=== PATIENT | male | born 1975 | race Caucasian/White ===

== ENCOUNTER 2018-03-18 12:54 | Emergency (ER) | payer OTHER ==
[~2018-03-18] VITALS: Ht 182.9 cm; Wt 90.7 kg
== END 2018-03-18 14:05 | disposition left against medical advice (07) ==
LOC: ER 12:54
DX: Z53.21 Procedure and treatment not carried out due to patient leaving prior to being seen by health care provider (principal)

== ENCOUNTER 2019-09-07 09:15 | Emergency (ER) | payer OTHER ==
[~2019-09-07] VITALS: Ht 182.9 cm; Wt 90.7 kg
[2019-09-07] MEDS ORDERED: BUDE6HFA INH (09:51)
[2019-09-07] MEDS ORDERED: ZESTORETIC 20-1 EAC1 PO (09:51)
[2019-09-07] MEDS ORDERED: ESCI20 PO (09:51)
[2019-09-07] MEDS ORDERED: HYDR1TAB94 PO (11:16)
[2019-09-07] MEDS ORDERED: CYCL10 PO (11:16)
[2019-09-07] MEDS ORDERED: IBUP800 PO (11:16)
== END 2019-09-07 11:33 | disposition home or self-care (01) ==
LOC: ER 09:15
DX: S22.31XA Fracture of one rib, right side, initial encounter for closed fracture (principal); F17.200 Nicotine dependence, unspecified, uncomplicated; Z88.8 Allergy status to other drugs, medicaments and biological substances; Z79.899 Other long term (current) drug therapy; W18.39XA Other fall on same level, initial encounter
CPT/HCPCS: 71101; 99283-25

== ENCOUNTER → 2019-10-14 | Outpatient (CLI) | payer OTHER ==
[~2019-10-14] MED LIST: BUDE6HFA INH; CYCL10 PO; ESCI20 PO; HYDR1TAB94 PO; IBUP800 PO; ZESTORETIC 20-1 EAC1 PO
== END | disposition home or self-care (01) ==
LOC: PLD 08:21 → LAB SHORT 08:21
DX: L98.2 Febrile neutrophilic dermatosis [Sweet] (principal)
CPT/HCPCS: 88305; 88312

== ENCOUNTER → 2020-05-19 | Outpatient (CLI) | payer OTHER ==
[2020-05-20 14:38] LABS: Rheumatoid Factor, Serum Negative (Negative)
[2020-05-21 11:19] LABS: Antinuclear Antibody Screen Negative (Negative)
== END | disposition home or self-care (01) ==
LOC: LAB SHORT 19:18 → LAB 19:18
PROVIDERS: Physician Assistant
DX: R29.898 Other symptoms and signs involving the musculoskeletal system (principal)
CPT/HCPCS: 85651; 86038; 86140; 86430

== ENCOUNTER → 2022-10-30 | Outpatient (CLI) | payer OTHER | END | disposition home or self-care (01) | LOC: LAB SHORT 14:51 → PLD 14:51 → LAB 14:51 | DX: D18.09 Hemangioma of other sites (principal) | CPT/HCPCS: 88305 ==

== ENCOUNTER → 2022-12-01 | Outpatient (CLI) | payer OTHER ==
[2022-12-11 14:08] LABS: COTININE <10.0 ng/mL (.); NICOTINE <10.0 ng/mL (.)
== END | disposition home or self-care (01) ==
LOC: LAB 12:30 → LAB SHORT 12:30 → LAB FUT 07-28 11:50
PROVIDERS: Nurse Practitioner Family
DX: Z01.812 Encounter for preprocedural laboratory examination (principal)
CPT/HCPCS: G0480

== ENCOUNTER → 2022-12-15 | Outpatient (CLI) | payer OTHER | LOC: LAB SHORT 17:03 | DX: R31.9 Hematuria, unspecified (principal) | CPT/HCPCS: 87086 ==

== ENCOUNTER 2023-02-22 08:08 | Day surgery (SDC) | payer OTHER ==
[~2023-02-22] VITALS: Ht 182.9 cm; Wt 97.2 kg
[2023-02-22] VITALS (9 sets, daily range): BP systolic 80–124; BP diastolic 52–77
[~2023-02-22 08:08] MED LIST changes: +ALBU90OI INH; +BUSP5 PO; +Chantix1 MG; +DULO60 PO; +FLUT1DIS8 INH; +HYDHCL25 PO; +LISI20 PO; +OMEP20ER PO; +SUCR1 PO
--- NOTE | 2023-02-22 08:30 | NUR ---
Ambulatory in Day Surgery History, Chart, Medications and Allergies reviewed before start of procedure.Lungs clear T/O to Auscultation. Patient confirms NPO status and agrees with scheduled surgery. Patient reports completing Chlorhexadine shower X2 prior to admission to hospital.Surgical site prepped with 2% Chlorhexidine cloth wipe. Patient States Post-Procedure ride home has been arranged.
--- NOTE | 2023-02-22 11:15 | NUR ---
Patient up to Ambulate independently. Gait steady. Discharge instructions reviewed with patient. Patient verbalizes understanding. Copy given to patient to take home, WELL MOM. Patient States Post-Procedure ride home has been arranged. Discharged via wheelchair to private car for ride home. PAPERWORK AND SCRIPT GIVEN TO PT.
== END 2023-02-22 11:15 | disposition home or self-care (01) ==
LOC: ORSCMMR 08:08 → ORD 10:15 → ORSCMMR 10:15
PROVIDERS: Surgery
PROC: 0WQF0ZZ Repair Abdominal Wall, Open Approach (ICD-10-PCS; principal; 2023-02-22 10:15)
DX: K42.0 Umbilical hernia with obstruction, without gangrene (principal); I10 Essential (primary) hypertension; J44.9 Chronic obstructive pulmonary disease, unspecified; K21.9 Gastro-esophageal reflux disease without esophagitis; F17.210 Nicotine dependence, cigarettes, uncomplicated; E78.00 Pure hypercholesterolemia, unspecified; Z79.899 Other long term (current) drug therapy
CPT/HCPCS: A9270; J0690; J1100; J1885; J2250; J2405; J2704; J2795; J3010; J7120